=== PATIENT | female | born 1985 | race Caucasian/White ===

== ENCOUNTER 2022-09-03 09:38 | Emergency (ER) | payer MEDICAID ==
[~2022-09-03] VITALS: Ht 154.9 cm; Wt 69.9 kg
--- NOTE | 2022-09-03 11:03 | NUR ---
BLOOD SAMPLE OBTAINED SENT TO LAB
--- NOTE | 2022-09-03 11:03 | NUR ---
ESTABLISHED IV LINE RIGHT AC 20 G
[2022-09-03 11:13] LABS: BASOPHILS % (AUTO) 0.4 % (0.0-2.0); EOSINOPHILS % (AUTO) 1.5 % (0.0-6.0); HEMATOCRIT 41 % (33-45); HEMOGLOBIN 13.6 g/dL (11.5-14.8); LYMPHOCYTES # (AUTO) 1.4 K/uL (0.8-4.8); LYMPHOCYTES % (AUTO) 21.7 % (20.0-44.0); MEAN CORPUSCULAR HGB CONC 33 g/dl (31.0-36.0); MEAN CORPUSCULAR VOLUME 88 fL (82-100); MONOCYTES # (AUTO) 0.5 K/uL (0.1-1.30); MONOCYTES % (AUTO) 7.4 % (2.0-12.0); NEUTROPHILS # (AUTO) 4.6 K/uL (1.8-8.9); PLATELET COUNT (AUTO) 311 K/uL (150-450); RED BLOOD CELL COUNT(AUTO) 4.65 MIL/uL (4.0-5.2); WHITE BLOOD COUNT (AUTO) 6.6 K/uL (4.3-11.0)
[2022-09-03 11:21] LABS: CALCIUM, SERUM 8.7 mg/dL (8.5-10.1); CARBON DIOXIDE 28 mmol/L (21-32); CHLORIDE 104 mmol/L (98-107); CREATININE 0.7 mg/dL (0.6-1.3); GLUCOSE 95 mg/dL (74-106); POTASSIUM 3.7 mmol/L (3.5-5.1); SODIUM SERUM 138 mmol/L (136-145); UREA NITROGEN, BLOOD 9 mg/dL (7-18)
--- NOTE | 2022-09-03 11:30 | NUR ---
possible , hold xray , waiting for test result
--- NOTE | 2022-09-03 12:48 | NUR ---
Patient discharged to home in stable condition. Written and verbal after care instructions given. Patient verbalizes understanding of instruction.
--- NOTE | 2022-09-03 12:48 | NUR ---
IV removed. Catheter intact and site benign. Pressure and 4x4 applied to site. No bleeding noted.
[2022-09-03 12:50] VITALS: BP 129/72
== END 2022-09-03 12:50 | disposition home or self-care (01) ==
LOC: ER 09:49
DX: R07.9 Chest pain, unspecified (principal)
CPT/HCPCS: 36415; 71045-TC; 80048-TC; 84484-TC; 84702-TC; 84703-TC; 85025-TC

== ENCOUNTER 2023-05-08 13:30 | Emergency (ER) | payer MEDICAID ==
[~2023-05-08] VITALS: Ht 154.9 cm; Wt 69.9 kg
[~2023-05-08 13:30] MED LIST: IBUP-1955 PO
[2023-05-08] MEDS ORDERED: MAG HYDROX/AL HYDROX/SIMETH 30 ML UDC ONE (14:16)
[2023-05-08] MEDS ORDERED: PANTOPRAZOLE 40 MG VIAL ONE (14:16)
[2023-05-08] MEDS ORDERED: LIDOCAINE VISCOUS 2% UD 15 ML UDC ONE (14:16)
[2023-05-08] MEDS ORDERED: ONDANSETRON HCL/PF 4 MG/2 ML VIAL ONE (14:16)
[2023-05-08] MEDS: IV NS 0.9% 1,000 ML BAG IV ONE (14:22)
[2023-05-08] MEDS: LIDOCAINE VISCOUS 2% UD 15 ML UDC MM ONE (14:22)
[2023-05-08] MEDS: MAG HYDROX/AL HYDROX/SIMETH 30 ML UDC PO ONE (14:22)
[2023-05-08] MEDS: PANTOPRAZOLE 40 MG VIAL IV ONE (14:22)
[2023-05-08] MEDS: ONDANSETRON HCL/PF 4 MG/2 ML VIAL IVP ONE (14:22)
[2023-05-08 14:32] LABS: BASOPHILS % (AUTO) 0.1 % (0.0-2.0); EOSINOPHILS # (AUTO) 0.2 K/uL (0.0-0.7); HEMATOCRIT 44 % (33-45); HEMOGLOBIN 14.6 g/dL (11.5-14.8); LYMPHOCYTES # (AUTO) 0.4 K/uL (0.8-4.8); LYMPHOCYTES % (AUTO) 4.6 % (20.0-44.0); MEAN CORPUSCULAR HEMOGLOBIN 29 PG (26.0-33.0); MEAN CORPUSCULAR HGB CONC 33 g/dl (31.0-36.0); MEAN CORPUSCULAR VOLUME 87 fL (82-100); MONOCYTES # (AUTO) 0.3 K/uL (0.1-1.30); MONOCYTES % (AUTO) 3.1 % (2.0-12.0); NEUTROPHILS # (AUTO) 7.7 K/uL (1.8-8.9); NEUTROPHILS % (AUTO) 90.2 % (43.0-81.0); PLATELET COUNT (AUTO) 332 K/uL (150-450); RED CELL DISTRIBUTION WIDTH 12.5 % (11.5-15.0); WHITE BLOOD COUNT (AUTO) 8.6 K/uL (4.3-11.0)
[2023-05-08 14:34] LABS: CALCIUM, SERUM 9.2 mg/dL (8.5-10.1); CREATININE 0.7 mg/dL (0.6-1.3); POTASSIUM 3.7 mmol/L (3.5-5.1)
[2023-05-08 14:39] LABS: BILIRUBIN,DIRECT 0.2 mg/dL (0.0-0.2); BILIRUBIN,TOTAL 0.6 mg/dL (0.2-1.0); TOTAL PROTEIN, SERUM 8.2 g/dL (6.4-8.2)
[2023-05-08] MEDS ORDERED: FAMO-131 PO (14:48)
[2023-05-08] MEDS ORDERED: ONDA4TAB5 PO (14:48)
[2023-05-08 15:06] LABS: APPEARANCE,URINE TURBID (CLEAR); BILIRUBIN,URINE 1+ (NEGATIVE); BLOOD, URINE NEGATIVE Ery/uL (NEGATIVE); COLOR,URINE YELLOW (YELLOW); KETONES,URINE TRACE mg/dL (NEGATIVE); LEUKOCYTE ESTERASE ,URINE NEGATIVE (NEGATIVE); NITRITE, URINE POSITIVE (NEGATIVE); PH,URINE 5.5 (5.0-8.0); PROTEIN,URINE 1+ mg/dl (NEGATIVE); UGLUCOSE NEGATIVE (NEGATIVE); UROBILINOGEN,URINE 0.2 EU/dL (0.2)
[2023-05-08 15:14] LABS: OCCULT BLOOD STOOL NEGATIVE (NEGATIVE)
[2023-05-08 15:15] LABS: PREGNANCY TEST URINE QUAL NEGATIVE (NEGATIVE)
[2023-05-08 15:24] LABS: ADD URINE CULTURE YES; BACTERIA,URINE None seen /HPF (None Seen); RBC,URINE NONE SEEN /HPF (0-2); SQUAMOUS EPITHELIAL CELL,UR None Seen /HPF (None Seen); URINE AMORPHOUS URATE Many /HPF (None Seen); WBC,URINE NONE SEEN /HPF (0-3)
[2023-05-08] MEDS ORDERED: AMOX-430 PO (15:26)
[2023-05-08 15:44] VITALS: BP 122/83; TEMP 98.6; O2SAT 97
== END 2023-05-08 15:47 | disposition home or self-care (01) ==
LOC: ER 13:30
DX: N39.0 Urinary tract infection, site not specified (principal); R11.2 Nausea with vomiting, unspecified; R19.7 Diarrhea, unspecified; R10.9 Unspecified abdominal pain
CPT/HCPCS: 99284; 96374; 71045; 96361; 96375; 85025; 80048; 83690; 80076; 82272; 84703; 81001; 36415; J2405; J7030; C9113